=== PATIENT | male | born 1945 ===

== ENCOUNTER 2016-09-15 11:00 | Outpatient (RCR) | payer OTHER | END 2016-10-01 | disposition home or self-care (01) | LOC: PTY 11:00 | DX: M51.36 Other intervertebral disc degeneration, lumbar region (principal); M48.06 Spinal stenosis, lumbar region; E11.9 Type 2 diabetes mellitus without complications | CPT/HCPCS: 97110; 97140; 97162; G0283 ==

== ENCOUNTER 2016-10-06 13:00 | Outpatient (RCR) | payer OTHER | END 2016-11-01 | disposition home or self-care (01) | LOC: PTY 13:00 | DX: M51.36 Other intervertebral disc degeneration, lumbar region (principal); M48.06 Spinal stenosis, lumbar region; E11.9 Type 2 diabetes mellitus without complications | CPT/HCPCS: 97110; 97140; G0283 ==

== ENCOUNTER 2017-04-22 14:00 | Outpatient (RCR) | payer OTHER | END 2017-05-04 | disposition home or self-care (01) | LOC: PTY 14:00 | DX: M76.71 Peroneal tendinitis, right leg (principal); E11.9 Type 2 diabetes mellitus without complications ==

== ENCOUNTER 2017-05-06 15:15 | Outpatient (RCR) | payer OTHER | END 2017-06-01 | disposition home or self-care (01) | LOC: PTY 15:15 | DX: M76.71 Peroneal tendinitis, right leg (principal); E11.9 Type 2 diabetes mellitus without complications ==